=== PATIENT | female | born 1975 | race Caucasian/White ===

== ENCOUNTER 2017-03-10 15:58 | Emergency (ER) | payer SELFPAY ==
[~2017-03-10] VITALS: Ht 160 cm; Wt 69.4 kg
[~2017-03-10 15:58] MED LIST: CIPR500T94 PO; HYDR-2678 PO; TAMS0.4C97 PO
--- NOTE | 2017-03-10 16:38 | PHYS DOC ---
Past Medical History Past Medical History: Kidney Stone, Pneumonia Past Surgical History: No Surgical History Alcohol Use: None Drug Use: None Adult General Chief Complaint Chief Complaint: LOWER EXT PAIN HPI HPI Patient is a 41 year old female who presents with week history increasing pain and swelling to the right medial thigh with some erythema; denies trauma or fever; denies prior history of blood clots. Denies diabetes. Eyes chest pain or shortness of breath. Review of Systems Review of Systems Constitutional: Denies fever or chills [] Eyes: Denies change in visual acuity, redness, or eye pain [] HENT: Denies nasal congestion or sore throat [] Respiratory: Denies cough or shortness of breath [] Cardiovascular: No additional information not addressed in HPI [] GI: Denies abdominal pain, nausea, vomiting, bloody stools or diarrhea [] : Denies dysuria or hematuria [] Musculoskeletal: Denies back pain or joint pain [] Integument: Denies rash or skin lesions [] Neurologic: Denies headache, focal weakness or sensory changes [] Endocrine: Denies polyuria or polydipsia [] All other systems were reviewed and found to be within normal limits, except as documented in this note. Current Medications Current Medications Current Medications Medications (Trade) Dose Ordered Sig/Layla Start Time Stop Time Status Last Admin Dose Admin Aspirin (Chucky Aspirin) 325 mg 1X ONCE 03/10/17 18:30 03/10/17 18:31 DC 03/10/17 18:36 325 MG Allergies Allergies Allergies Coded Allergies Type Severity Reaction Last Updated Verified No Known Drug Allergies 01/14/14 No Physical Exam Physical Exam Constitutional: Well developed, well nourished, no acute distress, non-toxic appearance. [] HENT: Normocephalic, atraumatic, bilateral external ears normal, oropharynx moist, no oral exudates, nose normal. [] Eyes: PERRLA, EOMI, conjunctiva normal, no discharge. [] Neck: Normal range of motion, no tenderness, supple, no stridor. [] Cardiovascular:Heart rate regular rhythm, no murmur [] Lungs & Thorax: Bilateral breath sounds clear to auscultation [] Abdomen: Bowel sounds normal, soft, no tenderness, no masses, no pulsatile masses. [] Skin: Warm, dry, no erythema, no rash. [] Back: No tenderness, no CVA tenderness. [] Extremities: Right medial thigh slight erythema and tenderness palpation no pedal edema 2+ pulses in the foot and ankle; left leg is asymptomatic and normal in appearance[] Neurologic: Alert and oriented X 3, normal motor function, normal sensory function, no focal deficits noted. [] Psychologic: Affect normal, judgement normal, mood normal. [] Current Patient Data Vital Signs Vital Signs Date Time Temp Pulse Resp B/P (MAP) Pulse Ox O2 Delivery O2 Flow Rate FiO2 03/10/17 18:36 105 16 126/73 (90) 97 03/10/17 16:15 98.3 Room Air 98.3 Lab Values Laboratory Tests Test 03/10/17 16:27 POC Urine HCG, Qualitative Hcg negative (Negative) EKG EKG [] Radiology/Procedures Radiology/Procedures Venous ultrasound right leg[ no DVT but patient has a clot involving the greater saphenous vein which is a superficial vein but it extends above the knee. This was discussed with the radiologist who called me.] Course & Med Decision Making Course & Med Decision Making Pertinent Labs and Imaging studies reviewed. (See chart for details) Ultrasound was consistent with a superficial thrombophlebitis involving the greater saphenous vein but given the extent of the clot and I recommended aspirin daily and follow-up repeat sono that leg in 1 week and in the meantime warm compresses. [] Dragon Disclaimer Dragon Disclaimer This electronic medical record was generated, in whole or in part, using a voice recognition dictation system. Departure Departure Impression: Primary Impression: Superficial thrombophlebitis Additional Impression: Saphenous vein thrombophlebitis Disposition: HOME, SELF-CARE Condition: STABLE Referrals: NON,STAFF (PCP) Problem Qualifiers BIRD PADILLA MD Mar 10, 2017 16:38
--- NOTE | 2017-03-10 17:32 | RAD ---
Ultrasound venous Doppler right lower extremity 03/10/2017 Clinical indication: Pain and swelling in the right lower extremity. Comparison: None. Findings: Grayscale, color Doppler and spectral waveform analysis of the right lower extremity including serial graded compression augmentation was performed. Common femoral, femoral, insertion of the deep femoral and popliteal veins are patent with normal color Doppler imaging. There is completely occlusive thrombus in the distal greater saphenous vein. Impression: 1. Completely occlusive thrombus in the greater saphenous vein adjacent to lower thigh, calf and ankle. 2. No femoral-popliteal right lower extremity venous thrombosis. These results were discussed with Dr. Hawley of the emergency service by telephone at 5:30 PM 03/10/[address] David Coronado.
[2017-03-10] MEDS ORDERED: ASPIRIN 325 MG TABLET PO ONE (18:30)
[2017-03-10 18:36] VITALS: BP 126/73
== END 2017-03-10 18:43 | disposition home or self-care (01) ==
LOC: ER 15:58
DX: I80.01 Phlebitis and thrombophlebitis of superficial vessels of right lower extremity (principal); Z87.442 Personal history of urinary calculi
CPT/HCPCS: 81025; 93971; 99284-25